=== PATIENT | male | born 1985 | race Asian ===

== ENCOUNTER 2023-11-11 12:39 | Emergency (ER) | payer MEDICAID ==
[~2023-11-11] VITALS: Ht 172.7 cm; Wt 90.9 kg
[2023-11-11 12:45] VITALS: TEMP 98.3
[2023-11-11 16:48] VITALS: BP 154/86; PULSE 82; RESP 18
== END 2023-11-11 16:51 | disposition home or self-care (01) ==
LOC: EDSEX 12:39 → EMS 12:39
DX: Z48.00 Encounter for change or removal of nonsurgical wound dressing (principal)
CPT/HCPCS: 99281; 99282; Z7502